=== PATIENT | male | born 1970 | race Caucasian/White ===

== ENCOUNTER → 2018-01-14 17:09 | Outpatient (CLI) | payer OTHER, SELFPAY ==
--- NOTE | 2018-01-14 17:21 | RAD_ITS ---
STUDY: X-RAY - LUMBAR SPINE REASON FOR EXAM: Male, 47 years old. Pain TECHNIQUE: 3 view(s) of the lumbar spine were obtained. COMPARISON: None FINDINGS: Normal lumbar lordosis. There is no substantial scoliosis. There is a normal alignment of the vertebrae. Normal vertebral bodies and endplates. Normal disc space heights. The soft tissue structures are unremarkable. RAD/Lumbar Spine 2 or 3 Views IMPRESSION: Normal x-ray examination of the lumbar spine. Electronically Signed: Prabhu Moreira DO at 22:59 EDT Tel [phone], Service support ,
== END ==
PROVIDERS: Family Provider Family Medicine; PCP Family Medicine; Visit Provider Anesthesiology Pain Medicine
DX: M54.9 Dorsalgia, unspecified (principal)
CPT/HCPCS: 72100

== ENCOUNTER → 2019-10-08 16:07 | Outpatient (CLI) | payer SELFPAY ==
--- NOTE | 2019-10-08 16:42 | CT_ITS ---
STUDY: CT CHEST WITHOUT CONTRAST REASON FOR EXAM: Male, 49 years old. DYSPNEA RADIATION DOSAGE (If Supplied By Facility): CTDIvol = ( 19.25 ) mGy, DLP = ( 649.36 ) mGycm TECHNIQUE: Transaxial imaging was performed without the administration of intravenous contrast material. Multiplanar coronal and sagittal images were reformatted. Individualized dose optimization techniques were used for this CT. COMPARISON: None. FINDINGS: 1 discrete platelike area of scarring or atelectasis in the anterior right lower lobe, anterior left lower lobe and at the base of the lingula. Otherwise negative for major consolidation. Negative for pleural effusion. Normal heart and pericardium. Negative for coronary calcifications. Normal mediastinum. Normal hilar regions. Normal unenhanced pulmonary arteries. Normal aorta arch and descending thoracic aorta. Normal osseous structures. Mild fatty liver. Status post cholecystectomy. CT/Chest without Contrast IMPRESSION: Thin platelike areas of atelectasis or scarring in the bilateral lower lobes and at the base of the lingula without other infiltrates, consolidation or pleural effusion. Negative for emphysematous changes. Negative for pulmonary mass or nodules. Normal cardiac size. Normal mediastinum. Negative for pericardial effusion or coronary calcifications. Mild fatty liver. Status post cholecystectomy. Electronically Signed: Angie Skaggs MD at 22:02 EDT , Service support ,
== END ==
PROVIDERS: PCP Family Medicine; Visit Provider Internal Medicine Pulmonary Disease
DX: Z03.818 Encounter for observation for suspected exposure to other biological agents ruled out (principal); R07.89 Other chest pain; R06.00 Dyspnea, unspecified; R05 Cough
CPT/HCPCS: 71250

== ENCOUNTER → 2019-10-24 12:17 | Outpatient (CLI) | payer OTHER, SELFPAY ==
[2019-10-25 08:12] LABS: SARS-COV-2 TOTAL ABS Nonreactive (Nonreactive)
== END ==
PROVIDERS: PCP Family Medicine; Referring Provider Internal Medicine Pulmonary Disease; Visit Provider Internal Medicine Pulmonary Disease
DX: R07.9 Chest pain, unspecified (principal); R05 Cough
CPT/HCPCS: 86769; G2023

== ENCOUNTER → 2020-03-09 16:53 | Outpatient (CLI) | payer OTHER, SELFPAY ==
[2020-03-09 18:33] LABS: Amphetamine Urine VISTA NEGATIVE (<1000 ng/mL); Barbiturate Urine VISTA NEGATIVE (< 200 ng/mL); Benzodiazepine Urine VISTA NEGATIVE (< 200 ng/mL); Cocaine Urine VISTA NEGATIVE (< 300 ng/mL); Ecstacy Urine VISTA NEGATIVE (< 500 ng/mL); Methadone Urine VISTA NEGATIVE (< 300 ng/mL); PCP Urine VISTA NEGATIVE (< 25 ng/mL); THC Urine VISTA NEGATIVE (< 50 ng/mL); Vista UDS pH Range 6
== END ==
PROVIDERS: PCP Family Medicine; Visit Provider Anesthesiology Pain Medicine
DX: F11.20 Opioid dependence, uncomplicated (principal)
CPT/HCPCS: 80307

== ENCOUNTER → 2020-09-15 14:39 | Outpatient (CLI) | payer OTHER, SELFPAY ==
[2020-09-15 16:15] LABS: Amphetamine Urine VISTA NEGATIVE (<1000 ng/mL); Barbiturate Urine VISTA NEGATIVE (< 200 ng/mL); Benzodiazepine Urine VISTA NEGATIVE (< 200 ng/mL); Cocaine Urine VISTA NEGATIVE (< 300 ng/mL); Ecstacy Urine VISTA NEGATIVE (< 500 ng/mL); Methadone Urine VISTA NEGATIVE (< 300 ng/mL); PCP Urine VISTA NEGATIVE (< 25 ng/mL); THC Urine VISTA NEGATIVE (< 50 ng/mL); Vista UDS pH Range 5
== END ==
PROVIDERS: PCP Family Medicine; Visit Provider Anesthesiology Pain Medicine
DX: F11.20 Opioid dependence, uncomplicated (principal)
CPT/HCPCS: 80307

== ENCOUNTER → 2020-12-08 16:23 | Outpatient (CLI) | payer OTHER, SELFPAY ==
--- NOTE | 2020-12-08 16:44 | RAD_ITS ---
STUDY: X-RAY - PELVIS AND BILATERAL HIPS REASON FOR EXAM: Male, 50 years old. HIP PAIN TECHNIQUE: AP view of the pelvis.? 2 views of the right hip, and 2 views of the left hip were obtained. COMPARISON: None. FINDINGS: There is a non-specific bowel gas pattern. Normal visualized soft tissue structures. Normal bilateral iliac wings, sacroiliac joints and visualized sacrum. Normal bilateral superior and inferior pubic rami. Normal pubic symphysis. Normal bilateral ischial tuberosities. Normal visualized right femoral head. There is osteoarthritic spur formation of the right acetabular rim. There is mild articular joint space narrowing of the right hip. Normal visualized left femoral head. There is osteoarthritic spur formation of the left acetabular rim. There is mild articular joint space narrowing of the left hip. 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 Electronically Signed: Carlton Lazcnao MD at 9:54 EDT Tel , Service support ,
== END ==
PROVIDERS: PCP Family Medicine; Referring Provider Anesthesiology Pain Medicine; Visit Provider Anesthesiology Pain Medicine
DX: M25.551 Pain in right hip (principal); M25.552 Pain in left hip
CPT/HCPCS: 73521

== ENCOUNTER 2021-02-27 12:04 | Inpatient (IN) | payer OTHER, SELFPAY ==
[2021-02-27 12:09] VITALS: BP 125/93; PULSE 89; RESP 17; TEMP 36.7; O2SAT 96; BMI 35.8
--- NOTE | 2021-02-27 12:32 | CT_ITS ---
STUDY: CT ABDOMEN AND PELVIS WITHOUT CONTRAST REASON FOR EXAM: Male, 51 years old. Right lower quadrant pain radiating to the right back RADIATION DOSAGE (If Supplied By Facility): CTDIvol = ( 18.15 ) mGy, DLP = ( 925.01 ) mGycm TECHNIQUE: Transaxial images were obtained from the dome of the diaphragm to the symphysis pubis without oral contrast, and without intravenous contrast. Sagittal and coronal images were reconstructed. Individualized dose optimization techniques were used for this CT. COMPARISON: None. FINDINGS: The visualized lung bases are unremarkable. The visualized portions of the heart are within normal limits. Liver is severely fatty infiltrated.. Gallbladder is removed. There is no biliary dilation.. Normal spleen. Normal pancreas. Normal bilateral adrenal glands. There is a 5 mm stone in the mid to distal right ureter with mild hydronephrosis. There are additional small, 3 mm right and 1 and 13 mm left lower pole calyceal nonobstructing stones. Left lower pole stone is a staghorn with filling of the calyx. There is probably a left lower pole renal cyst, incompletely evaluated. Normal visualized stomach. Normal small intestine. Normal colon. The appendix is visualized and appears normal. Normal abdominal aorta. Normal inferior vena cava. Normal retroperitoneum. Normal urinary bladder. Normal abdominal wall. Normal osseous structures. CT/Abdomen/Pelvis without Cont IMPRESSION: 1. 5 mm mid to distal right ureteral stone with minor hydronephrosis. 2. Left calyceal nonobstructing calculi, early staghorn in the lower pole. Urology referral advised. 3. Possible left renal cyst, refer to confirmatory imaging such as ultrasound. 4. Severe hepatic steatosis. Electronically Signed: Pretty Read MD at 14:21 EDT Tel , Service support ,
--- NOTE | 2021-02-27 12:33 | EDS_ITS ---
HPI HPI - GI History of Present Illness Chief Complaint: Abd Pain Detail of Chief Complaint: Abdominal pain Informant: patient Abdominal Pain/Flank Pain Current Severity: 01/14 Maximum Severity: 01/14 Narrative Narrative: Patient presents with abdominal pain that initially started about a week ago. Patient states that he thought he might be passing a kidney stone so he drank a lot of water and eventually the pain went away. Over the last week he has had some intermittent twinges that have been short-lived of pain to the right lower quadrant. Today around 6 AM he had sudden onset of pain that was severe causing him to have nausea and vomiting and diaphoresis. EMS was called. Patient does not have history of kidney stones otherwise. He denies urinary symptoms. He denies fever. Patient's had prior cholecystectomy. He denies any blood in stool or black tarry stool. He denies hematuria. Prior similar symptoms: No PFSH PFSH Medical History (Updated 02/27/21 @ 14:[address] Kaitlin Osman DO) Neuropathy Home Medications gabapentin 900 mg PO TID 02/27/21 [History Last Taken Unknown] nortriptyline 10 mg PO QHS 02/27/21 [History Last Taken Unknown] oxycodone myristate [Xtampza ER] 13.5 mg PO BID 02/27/21 [History Last Taken Unknown] Allergy/AdvReac Type Severity Reaction Status Date / Time Penicillins Allergy allergy to Verified 02/27/21 12:05 mold, old not to take Surgical History (Updated 02/27/21 @ 12:10 by Jess Garvey) History of back surgery History of cholecystectomy History of shoulder surgery Social History Smoking Status: Never smoker ROS ROS ED Constitutional Constitutional ED: Reports systems reviewed and no addt'l complaints, except as documented; Denies body ache(s), change in weight or chills Eyes Eyes: Denies acute decrease in peripheral vision, change in vision, double vision or loss of vision ENT ENT ED: Reports none; Denies ear pain, lip swelling, loss taste/smell, neck pain, otalgia or sore throat Cardiovascular Cardiovascular: Reports none; Denies abdominal pain, chest pain with activity, leg edema, lightheadedness, palpitations, rapid heart rate or syncope Respiratory/Chest Respiratory/Chest: Reports none; Denies change in mental status, dry cough, dyspnea, hemoptysis, shortness of breath at rest or shortness of breath with exertion Gastrointestinal Gastrointestinal: Reports none, abdominal pain, nausea and vomiting; Denies change in stool character, diarrhea, hematemesis, hematochezia, melena or rectal bleeding Genitourinary Genitourinary ED: Reports none; Denies abdominal discomfort, anuria, dysuria, genital pain or polyuria Musculoskeletal Musculoskeletal: Reports none; Denies arthralgias, back pain, difficulty walking, extremity pain, muscle weakness or myalgias Integumentary Reports none; Denies abscess or rash Neurologic Neurologic: Reports none; Denies abnormal gait, confusion, focal weakness, frequent falls, headache(s), loss of vision, numbness, paresthesias, radicular pain, vertigo or weakness Psychiatric Psychiatric: Reports systems reviewed and no addt'l complaints, except as documented and none; Denies behavioral changes, confusion, difficulty concentrating, hallucinations, suicidal ideation, tactile hallucinations or visual hallucinations Endocrine Endocrinology: Denies none, cold intolerance, excessive sweating, fatigue or heat intolerance Hematologic/Lymphatic Hematologic/Lymphatic: Reports none; Denies anemia, easy bleeding or easy bruising Allergic/Immunologic Allergic/Immunologic ED: Denies as per HPI, none, lip swelling, mouth swelling, throat swelling, tongue swelling or hives EXAM Physical Exam Const Vital Signs: 02/27/21 12:09 Temperature 98.1 F Temperature Source Oral Pulse Rate 89 Respiratory Rate 17 Blood Pressure 125/93 H Blood Pressure Mean 103 Pulse Ox 96 Oxygen Delivery Method Room Air Positive well nourished and well developed General Appearance ED: well developed and NAD HEENT Reports TM's clear and moist mucous membranes normocephalic and atraumatic; Negative for trauma or tenderness Tympanic Membrane ED: Yes TM's clear Eyes PERRL and EOMs intact bilaterally General Eye ED: Negative for pale conjunctiva or scleral icterus Neck no lymphadenopathy, supple and no JVD General: Negative for tenderness Chest Wall inspection of chest normal and palpation of chest normal Chest: Negative for tenderness Resp normal respiratory effort and clear to auscultation bilaterally Effort and Inspection: Negative for respiratory distress or pain with movement Auscultation: Negative for rhonchi, wheezes or diminished lung sounds Cardio regular rate, regular rhythm, S1 normal heart sound, S2 normal heart sound and no murmurs Peripheral Pulses: pulses 2+ throughout GI normal to inspection, nondistended, normoactive bowel sounds, soft to palpation, non-distended and no masses GI Narrative: Patient with tenderness over right lower quadrant with some guarding. There is no rebound, rigidity, or frail signs. Patient also with some right-sided CVA tenderness on exam. Palpation: soft and tender Back/Spine no thoracic nor lumbar tenderness General Back: CVA tenderness Extremity normal to inspection General Extremety ED: Negative for edema General Extremity: Negative for edema Neuro oriented x3, CN's II-XII intact bilaterally, no sensory deficits noted and gait normal Sensorium / Orientation: awake, alert, oriented to person, oriented to place and oriented to time Motor Exam: strength 5/5 throughout and strength abnormal Psych mental status grossly normal Skin no rashes or lesions noted and no wounds MDM MDM MDM Narrative Medical decision making narrative: IV line established on arrival. Patient was medicated with Dilaudid and Zofran and Toradol. Patient had initially good pain relief but then the pain started come back and now rates it an 8 out of 10 again. Patient was noted to have a 5 mm right mid ureter stone with mild hydro- . Case will be discussed with hospitalist evaluate patient for admission for intractable pain. I am told urology is not available today. I do not feel patient needs a emergent urological intervention. Lab Data Attestation: I reviewed the patient's lab results. Labs: Laboratory Results - last 24 hr 02/27/21 02/27/21 02/27/21 11:37 11:37 13:07 WBC 6.6 RBC 4.60 Hgb 14.1 Hct 44.1 MCV 95.9 H MCH 30.7 MCHC 32.0 RDW Std Deviation 41.2 RDW Coeff of Luli 11.8 Plt Count 317 MPV 9.2 Immature Gran % (Auto) 0.300 Neut % (Auto) 65.4 Lymph % (Auto) 15.6 L [place] % (Auto) 11.4 H Eos % (Auto) 6.8 H Baso % (Auto) 0.5 Absolute Neuts (auto) 4.3 Absolute Lymphs (auto) 1.03 Nucleated RBC % 0 Sodium 137 Potassium 3.5 Chloride 101 Carbon Dioxide 27.0 Anion Gap 9 BUN 14 Creatinine 1.11 Estim Creat Clear Calc 75.32 Est GFR (MDRD) Af Amer 90 Est GFR (MDRD) Non-Af 74 BUN/Creatinine Ratio 12.6 Glucose 98 Lactic Acid 1.4 Calcium 8.8 Total Bilirubin 0.40 AST 27 ALT 49 Alkaline Phosphatase 78 Total Protein 7.2 Albumin 3.8 Globulin 3.4 Albumin/Globulin Ratio 1.1 Lipase 213 Urine Color Urine Clarity Urine pH Ur Specific [place] Urine Protein Urine Glucose (UA) Urine Ketones Urine Occult Blood Urine Nitrite Urine Bilirubin Urine Urobilinogen Ur Leukocyte Esterase Urine RBC Urine WBC Ur Squamous Epith Cells Urine Bacteria Urine Mucus 02/27/21 13:21 WBC RBC Hgb Hct MCV MCH MCHC RDW Std Deviation RDW Coeff of Luli Plt Count MPV Immature Gran % (Auto) Neut % (Auto) Lymph % (Auto) [place] % (Auto) Eos % (Auto) Baso % (Auto) Absolute Neuts (auto) Absolute Lymphs (auto) Nucleated RBC % Sodium Potassium Chloride Carbon Dioxide Anion Gap BUN Creatinine Estim Creat Clear Calc Est GFR (MDRD) Af Amer Est GFR (MDRD) Non-Af BUN/Creatinine Ratio Glucose Lactic Acid Calcium Total Bilirubin AST ALT Alkaline Phosphatase Total Protein Albumin Globulin Albumin/Globulin Ratio Lipase Urine Color Yellow Urine Clarity Clear Urine pH 6.0 Ur Specific [place] 1.010 Urine Protein Negative Urine Glucose (UA) Normal Urine Ketones Negative Urine Occult Blood 150 H Urine Nitrite Negative Urine Bilirubin Negative Urine Urobilinogen Normal Ur Leukocyte Esterase Negative Urine RBC 0-5 SEEN Urine WBC 0-5 SEEN Ur Squamous Epith Cells 0 SEEN Urine Bacteria 0 SEEN Urine Mucus 0 SEEN Radiography Diagnostic Testing: Clinical Impression(s) from Imaging Studies Abdomen/Pelvis CT 02/27/21 12:32 IMPRESSION: 1. 5 mm mid to distal right ureteral stone with minor hydronephrosis. 2. Left calyceal nonobstructing calculi, early staghorn in the lower pole. Urology referral advised. 3. Possible left renal cyst, refer to confirmatory imaging such as ultrasound. 4. Severe hepatic steatosis. Electronically Signed: Pretty Read MD at 14:21 EDT Tel , Service support , Discharge Plan Triage Chief Complaint: Abd Pain ED Provider: Kaitlin Osman Dx/Rx/DC Orders Clinical Impression: Urolithiasis, Intractable pain Prescriptions: No Action gabapentin 600 mg tablet 900 mg PO TID RF: 0 nortriptyline 10 mg capsule 10 mg PO QHS RF: 0 Xtampza ER 13.5 mg cap,sprinkl,ER12hr(DONT CRUSH) 13.5 mg PO BID RF: 0 Primary Care Provider: Bijal Kendall Referrals: Bijal Kendall MD [Primary Care Provider] - Disposition Disposition: Acute Care Hospital [facility]
[2021-02-27] MEDS: Ketorolac 15 MG/ML Vial IV (12:39)
[2021-02-27] MEDS: Ondansetron 4 MG/2 ML Vial IV ×2 (12:39→15:14)
[2021-02-27] MEDS: 0.9% Normal Saline 1,000 ML 125 ML IV ×2 (12:39→22:06)
[2021-02-27] MEDS: HYDROmorphone 1 MG/ML Syringe IV ×2 (12:39→14:48)
[2021-02-27 13:13] LABS: Absolute Lymphocyte Count 1.03 X10^3/uL (0.83-4.51); Absolute Neutrophil Count 4.3 X10^3/uL (2.0-7.7); Basophil# 0.03 X10^3/uL; Basophil% 0.5 % (0-1); Eosinophil# 0.45 X10^3/uL; Eosinophils% 6.8 % (0-5); Hematocrit 44.1 % (40-54); Hemoglobin 14.1 g/dL (13.0-16.5); Lymphocyte # 1.03 X10^3/ul (0.83-4.51); Lymphocyte % 15.6 % (19-41); Mean Corpuscular Hgb 30.7 pg (27.0-32.0); Mean Corpuscular Volume 95.9 fL (80-94); Mean Platelet Vol. 9.2 fl (6.2-12.0); Monocyte# 0.75 X10^3/uL; Monocyte% 11.4 % (0-10); NRBC Flagged by Analyzer 0 % (0-5); Neutrophil # 4.31 X10^3/uL (2.7-7.7); Neutrophil % 65.4 % (47-70); Platelet Count 317 K/mm3 (150-450); RBC Distribution Width CV 11.8 % (11.6-14.6); RBC Distribution Width SD 41.2 fl (35.1-43.9); White Blood Count 6.6 K/mm3 (4.4-11.0)
[2021-02-27 13:25] LABS: ALB/GLOB Ratio 1.1 RATIO (0.9-2.4); AST(SGOT) 27 U/L (15-37); Alanine Aminotransfer ALT/SGPT 49 U/L (16-61); Albumin, Serum 3.8 g/dL (3.2-5.0); Alkaline Phosphatase 78 U/L (45-117); Anion Gap 9 (5-15); BUN 14 mg/dL (7-18); BUN/Creat Ratio 12.6 RATIO (10-20); Calcium,Total 8.8 mg/dL (8.5-10.1); Chloride 101 mmol/L (98-107); Creatinine, Serum 1.11 mg/dL (0.70-1.30); EST Glomerular Filtration Rate 74 mL/min (>60); Est Glom Filt Rate - Afr Amer 90 mL/min (>60); Estimated Creatinine Clearance 75.32 ml/min; Globulin 3.4 g/dL (2.2-4.2); Glucose 98 mg/dL (74-106); Lipase 213 U/L (73-393); Potassium 3.5 mmol/L (3.5-5.1); Protein, Total 7.2 g/dL (6.4-8.2); Sodium Level 137 mmol/L (136-145)
[2021-02-27 13:34] LABS: Lactic Acid 1.4 mmol/L (0.4-1.9)
[2021-02-27 13:36] LABS: Bacteria 0 SEEN /hpf (None Seen); Mucous, Urine 0 SEEN /hpf (<or=2+); Squamous Epithelial Cells - UA 0 SEEN /hpf (0-5)
[2021-02-27 13:39] LABS: Color, Urine Yellow (Yellow); Glucose, Dipstick Normal (Normal); Ketone-Dipstick Negative (Negative); Leukocyte Esterase-Dipstick Negative /ul (Negative); Nitrite-Dipstick Negative (Negative); Occult Blood-Urine 150 /ul (Negative); Protein-Dipstick Negative (Negative); Urine Bilirubin Dipstick Negative (Negative); Urine Clarity Clear (Clear); Urine Urobilinogen Normal (Normal)
[2021-02-27 13:56] LABS: Red Blood Cells-Urine 0-5 SEEN /hpf (0-5); White Blood Cells 0-5 SEEN /hpf (0-5)
--- NOTE | 2021-02-27 14:44 | PCM.HP.STD ---
HPI - General General Date of Admission: 02/27/21 HPI Narrative ANANTH THOMAS, is a 51 M who presents to the hospital with intermittent abdominal pain for the last week. He came in this morning because the pain recurred severely. In the ER he was found to have normal vital signs as well as normal labs however CT scan of his abdomen demonstrated a right distal ureteral stone as well as a possible early staghorn stone in the left kidney.Denies any fevers or chills but states that he did have some nausea and vomiting due to the pain. [facility] Medical History (Updated 02/27/21 @ 15:51 by Isabel Giron) Asthma Chronic pain CPAP (continuous positive airway pressure) dependence Irregular heart beat Migraines Neuropathy Non-smoker Osteoporosis Sleep apnea Home Medications gabapentin 900 mg PO TID 02/27/21 [History Last Taken Unknown] nortriptyline 10 mg PO QHS 02/27/21 [History Last Taken Unknown] oxycodone myristate [Xtampza ER] 13.5 mg PO BID 02/27/21 [History Last Taken Unknown] Allergy/AdvReac Type Severity Reaction Status Date / Time Penicillins Allergy allergy to Verified 02/27/21 12:05 mold, old not to take Family History (Updated 02/27/21 @ 17:[address] Joe Leal MD) Other CVA (cerebral vascular accident) Surgical History (Updated 02/27/21 @ 12:10 by Jess Garvey) History of back surgery History of cholecystectomy History of shoulder surgery Social History Smoking Status: Never smoker ROS Constitutional Constitutional: Denies chills, fatigue, fever(s) or malaise Eyes Eyes: Denies blurry vision ENT HEENT: Denies headache(s) or nasal discharge Cardiovascular Cardiovascular: Denies chest pain, dyspnea on exertion or syncope Respiratory/Chest Respiratory/Chest: Denies cough, shortness of breath at rest or shortness of breath with exertion Gastrointestinal Gastrointestinal: Denies constipation, diarrhea, nausea or vomiting Genitourinary Genitourinary: Reports flank pain; Denies dysuria Neurologic Neurologic: Denies focal weakness, numbness or tremor(s) Psychiatric Psychiatric: Denies anxiety or depression Vital Signs Vital Signs Vital Signs: 02/27/21 12:09 Temperature 98.1 F Temperature Source Oral Pulse Rate 89 Respiratory Rate 17 Blood Pressure 125/93 H Blood Pressure Mean 103 Pulse Ox 96 Oxygen Delivery Method Room Air Weight Weight: 235 lb 10.786 oz Body Mass Index (BMI) 35.8 Physical Exam Const alert, oriented x3 and no apparent distress General Appearance: cooperative HEENT normocephalic and moist oral mucous membranes Eyes PERRL, EOMs intact bilaterally and conjunctivae normal Neck supple and no JVD Resp normal respiratory effort, no retractions, no use of accessory muscles and clear to auscultation bilaterally Auscultation: Negative for crackles, rales, rhonchi or wheezes Cardio regular rate, regular rhythm, S1 normal heart sound, S2 normal heart sound and no murmurs GI soft to palpation, non-tender and non-distended; Negative for hepatosplenomegaly Bladder / Kidney Exam: CVA tenderness right Extremity no clubbing, cyanosis or edema Skin no rashes or lesions noted Neuro no focal motor deficits and no sensory deficits noted Psych affect normal Appearance: appropriate Results Lab / Micro Data Result Diagrams: 02/27/21 11:37 02/27/21 11:37 Labs: Laboratory Results - last 24 hr 02/27/21 11:37: WBC 6.6, RBC 4.60, Hgb 14.1, Hct 44.1, MCV 95.9 H, MCH 30.7, MCHC 32.0, RDW Std Deviation 41.2, RDW Coeff of Luli 11.8, Plt Count 317, MPV 9.2, Immature Gran % (Auto) 0.300, Neut % (Auto) 65.4, Lymph % (Auto) 15.6 L, [place] % (Auto) 11.4 H, Eos % (Auto) 6.8 H, Baso % (Auto) 0.5, Absolute Neuts (auto) 4.3, Absolute Lymphs (auto) 1.03, Nucleated RBC % 0 02/27/21 11:37: Sodium 137, Potassium 3.5, Chloride 101, Carbon Dioxide 27.0, Anion Gap 9, BUN 14, Creatinine 1.11, Estim Creat Clear Calc 75.32, Est GFR (MDRD) Af Amer 90, Est GFR (MDRD) Non-Af 74, BUN/Creatinine Ratio 12.6, Glucose 98, Calcium 8.8, Total Bilirubin 0.40, AST 27, ALT 49, Alkaline Phosphatase 78, Total Protein 7.2, Albumin 3.8, Globulin 3.4, Albumin/Globulin Ratio 1.1, Lipase 213 02/27/21 13:07: Lactic Acid 1.4 02/27/21 13:21: Urine Color Yellow, Urine Clarity Clear, Urine pH 6.0, Ur Specific [place] 1.010, Urine Protein Negative, Urine Glucose (UA) Normal, Urine Ketones Negative, Urine Occult Blood 150 H, Urine Nitrite Negative, Urine Bilirubin Negative, Urine Urobilinogen Normal, Ur Leukocyte Esterase Negative, Urine RBC 0-5 SEEN, Urine WBC 0-5 SEEN, Ur Squamous Epith Cells 0 SEEN, Urine Bacteria 0 SEEN, Urine Mucus 0 SEEN Radiology Impression Abdomen/Pelvis CT 02/27/21 12:32 IMPRESSION: 1. 5 mm mid to distal right ureteral stone with minor hydronephrosis. 2. Left calyceal nonobstructing calculi, early staghorn in the lower pole. Urology referral advised. 3. Possible left renal cyst, refer to confirmatory imaging such as ultrasound. 4. Severe hepatic steatosis. Electronically Signed: Pretty Read MD at 14:21 EDT Tel , Service support , Assessment & Plan Assessment/Plan (1) Urolithiasis: PLAN: 1. 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
[2021-02-27 14:51] VITALS: BP 160/80; PULSE 84; RESP 18; TEMP 36.6; O2SAT 96
[2021-02-27 15:27] VITALS: BMI 35.3
[2021-02-27 15:34] VITALS: BP 119/82; PULSE 88; RESP 18; TEMP 36.9; O2SAT 97
[2021-02-27] MEDS: Gabapentin 300 MG Capsule 900 MG PO ×2 (16:11→22:07)
[2021-02-27] MEDS: Tamsulosin HCl 0.4 MG Capsule PO (18:26)
[2021-02-27] MEDS: 0.9% Saline Lock 10 ML Syringe IV (18:31)
[2021-02-27] MEDS: Ketorolac 30 MG/ML Syringe IV (18:32)
[2021-02-27 21:54] VITALS: BP 112/72; PULSE 69; RESP 18; TEMP 36.8; O2SAT 100
[2021-02-27] MEDS: oxyCODONE CR 15 MG Tablet PO (22:07)
[2021-02-27] MEDS: Nortriptyline 10 MG Capsule PO (22:08)
[2021-02-28] MEDS: 0.9% Saline Lock 10 ML Syringe IV (05:34)
[2021-02-28] MEDS: Ketorolac 30 MG/ML Syringe IV ×3 (05:34→22:51)
[2021-02-28] MEDS: 0.9% Normal Saline 1,000 ML 125 ML IV ×3 (05:38→20:55)
[2021-02-28] MEDS: Gabapentin 300 MG Capsule 900 MG PO ×3 (05:39→20:57)
[2021-02-28 05:43] VITALS: BP 113/73; PULSE 63; RESP 18; TEMP 36.3; O2SAT 100
[2021-02-28 06:13] LABS: Absolute Lymphocyte Count 1.82 X10^3/uL (0.83-4.51); Absolute Neutrophil Count 1.6 X10^3/uL (2.0-7.7); Basophil# 0.02 X10^3/uL; Basophil% 0.4 % (0-1); Eosinophil# 0.58 X10^3/uL; Eosinophils% 12.9 % (0-5); Hematocrit 42.2 % (40-54); Hemoglobin 13.1 g/dL (13.0-16.5); Lymphocyte # 1.82 X10^3/ul (0.83-4.51); Lymphocyte % 40.4 % (19-41); Mean Corpuscular Hgb 31.1 pg (27.0-32.0); Mean Corpuscular Volume 100.2 fL (80-94); Mean Platelet Vol. 9.8 fl (6.2-12.0); Monocyte% 11.1 % (0-10); NRBC Flagged by Analyzer 0 % (0-5); Neutrophil # 1.56 X10^3/uL (2.7-7.7); Neutrophil % 34.8 % (47-70); Platelet Count 186 K/mm3 (150-450); RBC Distribution Width CV 11.9 % (11.6-14.6); RBC Distribution Width SD 43.5 fl (35.1-43.9); Red Blood Count 4.21 M/mm3 (4.6-6.2); White Blood Count 4.5 K/mm3 (4.4-11.0)
[2021-02-28 06:32] LABS: Anion Gap 7 (5-15); BUN 10 mg/dL (7-18); BUN/Creat Ratio 11.1 RATIO (10-20); Calcium,Total 8.2 mg/dL (8.5-10.1); Chloride 110 mmol/L (98-107); EST Glomerular Filtration Rate 94 mL/min (>60); Est Glom Filt Rate - Afr Amer 114 mL/min (>60); Estimated Creatinine Clearance 92.89 ml/min; Glucose 96 mg/dL (74-106); Potassium 4.1 mmol/L (3.5-5.1); Sodium Level 135 mmol/L (136-145)
[2021-02-28 07:52] VITALS: BP 99/55; PULSE 69; RESP 16; TEMP 36.5; O2SAT 96
--- NOTE | 2021-02-28 07:53 | CON.PCM.UR_ITS ---
Assessment & Plan Assessment/Plan (1) Urolithiasis: PLAN: strain all urine, flomax, check kub in am , possible intervention if can't pass stone. (2) Intractable pain: HPI Consult Data Date of Consult: 02/28/21 HPI Narrative HPI Narrative: ANANTH THOMAS, is a 51 M who presents with stone in right ureter, came in with intracable pain, pain started last week. currenlty comfortable. FORMERLY [facility] Medical History (Updated 02/27/21 @ 15:51 by Isabel Giron) Asthma Chronic pain CPAP (continuous positive airway pressure) dependence Irregular heart beat Migraines Neuropathy Non-smoker Osteoporosis Sleep apnea Home Medications gabapentin 900 mg PO TID 02/27/21 [History Last Taken Unknown] nortriptyline 10 mg PO QHS 02/27/21 [History Last Taken Unknown] oxycodone myristate [Xtampza ER] 13.5 mg PO BID 02/27/21 [History Last Taken Unknown] Allergy/AdvReac Type Severity Reaction Status Date / Time Penicillins Allergy allergy to Verified 02/27/21 12:05 mold, old not to take Family History (Updated 02/27/21 @ 17:[address] Joe Leal MD) Other CVA (cerebral vascular accident) Surgical History (Updated 02/27/21 @ 12:10 by Jess Garvey) History of back surgery History of cholecystectomy History of shoulder surgery Social History Smoking Status: Never smoker ROS Constitutional Constitutional: Denies chills, fever(s) or malaise Eyes Eyes: Denies blurry vision or change in vision ENT HEENT: Reports none Cardiovascular Cardiovascular: Denies chest pain or palpitations Respiratory/Chest Respiratory/Chest: Denies cough or shortness of breath with exertion Gastrointestinal Gastrointestinal: Denies abdominal pain, constipation or diarrhea Musculoskeletal Musculoskeletal: Denies back pain, joint stiffness or joint swelling Integumentary Integumentary: Denies dry skin, jaundice, lesions or rash Neurologic Neurologic: Denies confusion, syncope or weakness Psychiatric Psychiatric: Reports none; Denies anxiety or depression Endocrine Endocrinology: Denies excessive sweating, fatigue or flushing Hematologic/Lymphatic Hematologic/Lymphatic: Denies anemia, easy bleeding or easy bruising Physical Exam Const alert and oriented x3 General Appearance: cooperative HEENT normocephalic, head/scalp atraumatic, EAC's normal and TM's normal bilaterally Eyes PERRL and EOMs intact bilaterally Pupil: sluggish Neck no lymphadenopathy, supple and no JVD General: trachea midline Lymph Lymphatic: no lymphadenopathy noted, lymphedema and lymphadenopathy Resp normal respiratory effort, normal air movement and clear to auscultation bilaterally Cardio regular rate, regular rhythm and peripheral pulses 2+ throughout GI soft to palpation, non-tender and non-distended Extremity normal capillary refill and no clubbing, cyanosis or edema General Extremity: no tenderness to palpation of joints or extremities Skin no rashes or lesions noted General Skin Exam: turgor normal Lesions: no lesions Rashes: no rashes Neuro CN's II-XII intact bilaterally Speech: speech normal Motor Exam: strength 5/5 throughout; Negative for general weakness Psych thought process normal, cooperative and affect normal Appearance: appropriate Lab / Micro Data Result Diagrams: 02/28/21 05:52 02/28/21 05:52 Labs: Laboratory Results - last 24 hr 02/27/21 11:37: WBC 6.6, RBC 4.60, Hgb 14.1, Hct 44.1, MCV 95.9 H, MCH 30.7, MCHC 32.0, RDW Std Deviation 41.2, RDW Coeff of Luli 11.8, Plt Count 317, MPV 9.2, Immature Gran % (Auto) 0.300, Neut % (Auto) 65.4, Lymph % (Auto) 15.6 L, [place] % (Auto) 11.4 H, Eos % (Auto) 6.8 H, Baso % (Auto) 0.5, Absolute Neuts (auto) 4.3, Absolute Lymphs (auto) 1.03, Nucleated RBC % 0 02/27/21 11:37: Sodium 137, Potassium 3.5, Chloride 101, Carbon Dioxide 27.0, Anion Gap 9, BUN 14, Creatinine 1.11, Estim Creat Clear Calc 75.32, Est GFR (MDRD) Af Amer 90, Est GFR (MDRD) Non-Af 74, BUN/Creatinine Ratio 12.6, Glucose 98, Calcium 8.8, Total Bilirubin 0.40, AST 27, ALT 49, Alkaline Phosphatase 78, Total Protein 7.2, Albumin 3.8, Globulin 3.4, Albumin/Globulin Ratio 1.1, Lipase 213 02/27/21 13:07: Lactic Acid 1.4 02/27/21 13:21: Urine Color Yellow, Urine Clarity Clear, Urine pH 6.0, Ur Specific [place] 1.010, Urine Protein Negative, Urine Glucose (UA) Normal, Urine Ketones Negative, Urine Occult Blood 150 H, Urine Nitrite Negative, Urine Bilirubin Negative, Urine Urobilinogen Normal, Ur Leukocyte Esterase Negative, Urine RBC 0-5 SEEN, Urine WBC 0-5 SEEN, Ur Squamous Epith Cells 0 SEEN, Urine Bacteria 0 SEEN, Urine Mucus 0 SEEN 02/28/21 05:52: WBC 4.5, RBC 4.21 L, Hgb 13.1, Hct 42.2, MCV 100.2 H, MCH 31.1, MCHC 31.0 L, RDW Std Deviation 43.5, RDW Coeff of Luli 11.9, Plt Count 186, MPV 9.8, Immature Gran % (Auto) 0.400, Neut % (Auto) 34.8 L, Lymph % (Auto) 40.4, [place] % (Auto) 11.1 H, Eos % (Auto) 12.9 H, Baso % (Auto) 0.4, Absolute Neuts (auto) 1.6 L, Absolute Lymphs (auto) 1.82, Nucleated RBC % 0 02/28/21 05:52: Sodium 135 L, Potassium 4.1, Chloride 110 H, Carbon Dioxide 18.0 L, Anion Gap 7, BUN 10, Creatinine 0.90, Estim Creat Clear Calc 92.89, Est GFR (MDRD) Af Amer 114, Est GFR (MDRD) Non-Af 94, BUN/Creatinine Ratio 11.1, Glucose 96, Calcium 8.2 L Radiology Impression Abdomen/Pelvis CT 02/27/21 12:32 IMPRESSION: 1. 5 mm mid to distal right ureteral stone with minor hydronephrosis. 2. Left calyceal nonobstructing calculi, early staghorn in the lower pole. Urology referral advised. 3. Possible left renal cyst, refer to confirmatory imaging such as ultrasound. 4. Severe hepatic steatosis. Electronically Signed: Pretty Read MD at 14:21 EDT Tel , Service support ,
--- NOTE | 2021-02-28 08:28 | PN.HOSP_ITS ---
Subjective Subjective Pain is controlled with Toradol and his home narcotics, continue with Flomax. No issues overnight Objective Data Objective Data Vital Signs: Vital Signs Temp Pulse Resp BP Pulse Ox 97.7 F L 69 16 99/55 L 96 02/28/21 07:52 02/28/21 07:52 02/28/21 07:52 02/28/21 07:52 02/28/21 07:52 Oxygen Delivery Method CPAP Weight: 232 lb 9 oz Body Mass Index (BMI) 35.3 Intake & Output: Intake and Output for Last 24 Hours 02/27/21 02/28/21 03/01/21 03:59 03:59 03:59 Intake Total 1000 / 1000 941.67 / 941.67 Output Total 750 / 750 900 / 900 Balance 250 / 250 41.67 / 41.67 Lab / Micro Data Result Diagrams: 02/28/21 05:52 02/28/21 05:52 Labs: Laboratory Results - last 24 hr 02/27/21 11:37: WBC 6.6, RBC 4.60, Hgb 14.1, Hct 44.1, MCV 95.9 H, MCH 30.7, MCHC 32.0, RDW Std Deviation 41.2, RDW Coeff of Luli 11.8, Plt Count 317, MPV 9.2, Immature Gran % (Auto) 0.300, Neut % (Auto) 65.4, Lymph % (Auto) 15.6 L, [place] % (Auto) 11.4 H, Eos % (Auto) 6.8 H, Baso % (Auto) 0.5, Absolute Neuts (auto) 4.3, Absolute Lymphs (auto) 1.03, Nucleated RBC % 0 02/27/21 11:37: Sodium 137, Potassium 3.5, Chloride 101, Carbon Dioxide 27.0, Anion Gap 9, BUN 14, Creatinine 1.11, Estim Creat Clear Calc 75.32, Est GFR (MDRD) Af Amer 90, Est GFR (MDRD) Non-Af 74, BUN/Creatinine Ratio 12.6, Glucose 98, Calcium 8.8, Total Bilirubin 0.40, AST 27, ALT 49, Alkaline Phosphatase 78, Total Protein 7.2, Albumin 3.8, Globulin 3.4, Albumin/Globulin Ratio 1.1, Lipase 213 02/27/21 13:07: Lactic Acid 1.4 02/27/21 13:21: Urine Color Yellow, Urine Clarity Clear, Urine pH 6.0, Ur Specific [place] 1.010, Urine Protein Negative, Urine Glucose (UA) Normal, Urine Ketones Negative, Urine Occult Blood 150 H, Urine Nitrite Negative, Urine Bilirubin Negative, Urine Urobilinogen Normal, Ur Leukocyte Esterase Negative, Urine RBC 0-5 SEEN, Urine WBC 0-5 SEEN, Ur Squamous Epith Cells 0 SEEN, Urine Bacteria 0 SEEN, Urine Mucus 0 SEEN 02/28/21 05:52: WBC 4.5, RBC 4.21 L, Hgb 13.1, Hct 42.2, MCV 100.2 H, MCH 31.1, MCHC 31.0 L, RDW Std Deviation 43.5, RDW Coeff of Luli 11.9, Plt Count 186, MPV 9.8, Immature Gran % (Auto) 0.400, Neut % (Auto) 34.8 L, Lymph % (Auto) 40.4, [place] % (Auto) 11.1 H, Eos % (Auto) 12.9 H, Baso % (Auto) 0.4, Absolute Neuts (auto) 1.6 L, Absolute Lymphs (auto) 1.82, Nucleated RBC % 0 02/28/21 05:52: Sodium 135 L, Potassium 4.1, Chloride 110 H, Carbon Dioxide 18.0 L, Anion Gap 7, BUN 10, Creatinine 0.90, Estim Creat Clear Calc 92.89, Est GFR (MDRD) Af Amer 114, Est GFR (MDRD) Non-Af 94, BUN/Creatinine Ratio 11.1, Glucose 96, Calcium 8.2 L Radiography Diagnostic Testing: Radiology Impression Abdomen/Pelvis CT 02/27/21 12:32 IMPRESSION: 1. 5 mm mid to distal right ureteral stone with minor hydronephrosis. 2. Left calyceal nonobstructing calculi, early staghorn in the lower pole. Urology referral advised. 3. Possible left renal cyst, refer to confirmatory imaging such as ultrasound. 4. Severe hepatic steatosis. Electronically Signed: Pretty Read MD at 14:21 EDT Tel , Service support , Physical Exam Const alert, oriented x3 and no apparent distress General Appearance: cooperative HEENT normocephalic and moist oral mucous membranes Eyes PERRL, EOMs intact bilaterally and conjunctivae normal Neck supple and no JVD Resp normal respiratory effort, no retractions, no use of accessory muscles and clear to auscultation bilaterally Auscultation: Negative for crackles, rales, rhonchi or wheezes Cardio regular rate, regular rhythm, S1 normal heart sound, S2 normal heart sound and no murmurs GI soft to palpation, non-tender and non-distended; Negative for hepatosplenomegaly Bladder / Kidney Exam: CVA tenderness right Extremity no clubbing, cyanosis or edema Skin no rashes or lesions noted Neuro no focal motor deficits and no sensory deficits noted Psych affect normal Appearance: appropriate Assessment & Plan Assessment/Plan (1) Urolithiasis: PLAN: 1. 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
[2021-02-28 09:23] VITALS: BP 111/71
[2021-02-28] MEDS: oxyCODONE CR 15 MG Tablet PO ×2 (09:26→22:49)
--- NOTE | 2021-02-28 11:00 | CASEMGMT ---
RN CM Face to Face with patient for initial transition planning/care coordination assessment. RN CM introduced self and role at [facility]. Patient lying in bed, alert and oriented. Patient willing to participate in assessment and is able to answer all questions appropriately. Care providers, pharmacy, and demographics verified. Patient wishes to discharge home, denies need for home health at this time. Patient states he has no further needs or concerns at this time. CM to follow for discharge planning needs that may arise. PCP: Faiza Specialists: Slade, pain; Steve, neurologist [facility] Preferred Pharmacy: [facility] retail at discharge. Insurance: [employer] Prescription Benefit: yes Living Will/HPOA: none LNOK: Living Arrangements: Patient lives with in 2 story home with bed and bath on first floor. Patient states he is independent and able to ambulate stairs. Transportation: self/ DME/HHC: Patient states he has shower chair, cane, walker, wheelchair, and cpap at home. No previous HHC or SNF. Disposition Plan: Patient to discharge home with family support and follow-up plans in place. Edith HAZEL, RN, CM
[2021-02-28 14:00] VITALS: BP 111/70; PULSE 69; RESP 16; TEMP 36.5; O2SAT 97
--- NOTE | 2021-02-28 15:31 | CHAPLAIN ---
Type of Pastoral Visit _x__ Initial Visit ___ Follow-up Visit ___ On-call Visit ___ General Patient Visit ___ Spiritual Assessment ___ Family Conference ___ Bereavement ___ Rapid Response ___ Code Blue ___ Other (describe below) Pastoral Care Referral From _x__ Patient ___ Family ___ Nurse ___ Physician ___ Chrome Plater Helper ___ Equipment Installation Professional ___ Other (describe below) Sacrament/Intervention _x__ Active listening ___ Anointing ___ Church ___ Bereavement ___ Communion _x__ Rita exploration ___ _x__ Life review _x__ Prayer ___ Reconciliation ___ Sacrament of Sick _x__ Supportive presence ___ Wedding ___ Other (describe below) Pastoral Comments patient is a man of rita and welcomes the spiritual care presence and support
[2021-02-28] MEDS: Tamsulosin HCl 0.4 MG Capsule PO (17:41)
[2021-02-28 20:15] VITALS: BP 123/65; PULSE 76; RESP 18; TEMP 37.1; O2SAT 96
[2021-02-28] MEDS: Nortriptyline 10 MG Capsule PO (22:50)
[2021-03-01 02:54] VITALS: BP 113/65; PULSE 72; RESP 16; TEMP 36.6; O2SAT 93
[2021-03-01] MEDS: 0.9% Normal Saline 1,000 ML 125 ML IV ×3 (04:29→20:23)
[2021-03-01] MEDS: 0.9% Saline Lock 10 ML Syringe IV ×3 (05:50→22:39)
[2021-03-01] MEDS: Ketorolac 30 MG/ML Syringe IV ×3 (05:51→22:40)
[2021-03-01] MEDS: Gabapentin 300 MG Capsule 900 MG PO ×3 (05:52→22:39)
--- NOTE | 2021-03-01 06:00 | RAD_ITS ---
STUDY: X-RAY - ABDOMEN/PELVIS REASON FOR EXAM: Male, 51 years old. Stone TECHNIQUE: Single AP view of the abdomen / pelvis. COMPARISON: None. FINDINGS: Normal visualized lung bases. There is an unremarkable bowel gas pattern. There is a 1.2 cm x 0.5 cm calculus in the lower pole calyx of the left kidney. There are calcified phleboliths in the pelvis. Normal visualized osseous structures. RAD/Abdomen Single View IMPRESSION: 1.2 cm x 0.5 cm calculus in the lower pole calyx of the left kidney. Electronically Signed: Issac Fu MD at 11:08 EDT , Service support ,
--- NOTE | 2021-03-01 07:43 | PCM.CONS.B ---
Consult Date of Consult: 03/01/21 Follow up to consult, 51 yo male presented with 5mm stone in distal right ureter, has not been able to pass stone KUB today can see stones in left kidney but not clear where stone is in right ureter. plan for intervention tomorrow is can't pass stone, added on to schedule for right ureteroscopy laser and stent. npo at pr
[2021-03-01 08:55] VITALS: BP 108/61; PULSE 80; RESP 16; TEMP 36.6; O2SAT 95
[2021-03-01] MEDS: oxyCODONE CR 15 MG Tablet PO ×2 (10:24→22:39)
[2021-03-01] MEDS: Tamsulosin HCl 0.4 MG Capsule PO ×2 (10:25→22:40)
--- NOTE | 2021-03-01 11:11 | PCM.PN.HOSP ---
Subjective Subjective Pain is controlled, still has not passed a stone. Plan for intervention in the morning. Objective Data Objective Data Vital Signs: Vital Signs Temp Pulse Resp BP Pulse Ox 97.8 F 80 16 108/61 95 03/01/21 08:55 03/01/21 08:55 03/01/21 08:55 03/01/21 08:55 03/01/21 08:55 Oxygen Delivery Method Room Air Weight: 232 lb 9 oz Body Mass Index (BMI) 35.3 Intake & Output: Intake and Output for Last 24 Hours 02/28/21 03/01/21 03/02/21 03:59 03:59 03:59 Intake Total 1000 / 1000 2833.34 / 2833.34 1066.66 / 1066.66 Output Total 750 / 750 3900 / 3900 700 / 700 Balance 250 / 250 -1066.66 / -1066.66 366.66 / 366.66 Lab / Micro Data Result Diagrams: 02/28/21 05:52 02/28/21 05:52 Radiography Diagnostic Testing: Radiology Impression KUB X-Ray 03/01/21 06:00 IMPRESSION: 1.2 cm x 0.5 cm calculus in the lower pole calyx of the left kidney. Electronically Signed: Issac Fu MD at 11:08 EDT , Service support , Physical Exam Const alert, oriented x3 and no apparent distress General Appearance: cooperative HEENT normocephalic and moist oral mucous membranes Eyes PERRL, EOMs intact bilaterally and conjunctivae normal Neck supple and no JVD Resp normal respiratory effort, no retractions, no use of accessory muscles and clear to auscultation bilaterally Auscultation: Negative for crackles, rales, rhonchi or wheezes Cardio regular rate, regular rhythm, S1 normal heart sound, S2 normal heart sound and no murmurs GI soft to palpation, non-tender and non-distended; Negative for hepatosplenomegaly Bladder / Kidney Exam: CVA tenderness right Extremity no clubbing, cyanosis or edema Skin no rashes or lesions noted Neuro no focal motor deficits and no sensory deficits noted Psych affect normal Appearance: appropriate Assessment & Plan Assessment/Plan (1) Urolithiasis: PLAN: 1. 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
[2021-03-01 18:24] VITALS: BP 137/80; PULSE 85; RESP 18; TEMP 36.5; O2SAT 94
[2021-03-01 22:35] VITALS: BP 123/82; PULSE 77; RESP 18; TEMP 36.8; O2SAT 95
[2021-03-01] MEDS: Nortriptyline 10 MG Capsule PO (22:40)
[2021-03-02] VITALS (10 sets, daily range): BP systolic 114–138; BP diastolic 71–93; PULSE 60–91; RESP 12–18; TEMP 36.2–36.6; O2SAT 92–100; BMI 35.3
[2021-03-02] MEDS: 0.9% Normal Saline 1,000 ML 125 ML IV ×3 (04:15→21:40)
[2021-03-02] MEDS: Gabapentin 300 MG Capsule 900 MG PO ×2 (06:39→21:38)
[2021-03-02] MEDS: Ketorolac 30 MG/ML Syringe IV ×3 (06:39→21:38)
[2021-03-02] MEDS: 0.9% Saline Lock 10 ML Syringe IV ×2 (06:40→13:40)
[2021-03-02 06:50] LABS: Absolute Lymphocyte Count 1.86 X10^3/uL (0.83-4.51); Absolute Neutrophil Count 2.1 X10^3/uL (2.0-7.7); Basophil# 0.03 X10^3/uL; Basophil% 0.5 % (0-1); Eosinophil# 0.84 X10^3/uL; Eosinophils% 15.4 % (0-5); Hematocrit 36.7 % (40-54); Hemoglobin 12.1 g/dL (13.0-16.5); Lymphocyte # 1.86 X10^3/ul (0.83-4.51); Mean Corpuscular Hgb 31.1 pg (27.0-32.0); Mean Corpuscular Volume 94.3 fL (80-94); Mean Platelet Vol. 8.9 fl (6.2-12.0); Monocyte# 0.61 X10^3/uL; Monocyte% 11.2 % (0-10); NRBC Flagged by Analyzer 0 % (0-5); Neutrophil # 2.12 X10^3/uL (2.7-7.7); Neutrophil % 38.7 % (47-70); Platelet Count 247 K/mm3 (150-450); RBC Distribution Width CV 11.8 % (11.6-14.6); RBC Distribution Width SD 41.1 fl (35.1-43.9); Red Blood Count 3.89 M/mm3 (4.6-6.2); White Blood Count 5.5 K/mm3 (4.4-11.0)
[2021-03-02 07:31] LABS: Anion Gap 6 (5-15); BUN 11 mg/dL (7-18); BUN/Creat Ratio 13.1 RATIO (10-20); Calcium,Total 8.3 mg/dL (8.5-10.1); Chloride 108 mmol/L (98-107); Creatinine, Serum 0.84 mg/dL (0.70-1.30); EST Glomerular Filtration Rate 102 mL/min (>60); Est Glom Filt Rate - Afr Amer 124 mL/min (>60); Estimated Creatinine Clearance 99.52 ml/min; Glucose 98 mg/dL (74-106); Potassium 4.3 mmol/L (3.5-5.1); Sodium Level 138 mmol/L (136-145)
--- NOTE | 2021-03-02 09:15 | PCS.PANDOC ---
PANDEMIC DOCUMENTATION INITIATED: Date: 12/20/2020 Time: 190
--- NOTE | 2021-03-02 10:17 | PN.HOSP_ITS ---
Subjective Subjective Doing well plan for OR today. Objective Data Objective Data Vital Signs: Vital Signs Temp Pulse Resp BP Pulse Ox 97.9 F 68 18 126/85 H 100 03/02/21 10:09 03/02/21 10:09 03/02/21 10:09 03/02/21 10:09 03/02/21 10:09 Oxygen Delivery Method Room Air Weight: 232 lb 9 oz Body Mass Index (BMI) 35.3 Intake & Output: Intake and Output for Last 24 Hours 03/01/21 03/02/21 03/03/21 03:59 03:59 03:59 Intake Total 2833.34 / 2833.34 3735.41 / 3735.41 983.33 / 983.33 Output Total 3900 / 3900 3800 / 3800 400 / 400 Balance -1066.66 / -1066.66 -64.59 / -64.59 583.33 / 583.33 Lab / Micro Data Result Diagrams: 03/02/21 06:24 03/02/21 06:24 Labs: Laboratory Results - last 24 hr 03/02/21 06:24: WBC 5.5, RBC 3.89 L, Hgb 12.1 L, Hct 36.7 L, MCV 94.3 H D, MCH 31.1, MCHC 33.0 D, RDW Std Deviation 41.1, RDW Coeff of Luli 11.8, Plt Count 247, MPV 8.9, Immature Gran % (Auto) 0.200, Neut % (Auto) 38.7 L, Lymph % (Auto) 34.0, [place] % (Auto) 11.2 H, Eos % (Auto) 15.4 H, Baso % (Auto) 0.5, Absolute Neuts (auto) 2.1, Absolute Lymphs (auto) 1.86, Nucleated RBC % 0 03/02/21 06:24: Sodium 138, Potassium 4.3, Chloride 108 H, Carbon Dioxide 24.0, Anion Gap 6, BUN 11, Creatinine 0.84, Estim Creat Clear Calc 99.52, Est GFR (MDRD) Af Amer 124, Est GFR (MDRD) Non-Af 102, BUN/Creatinine Ratio 13.1, Glucose 98, Calcium 8.3 L Micro: Microbiology 03/02/21 07:10 Nasal Secretion SARS-CoV-2 Antigen (Rapid) - Final Radiography Diagnostic Testing: Radiology Impression KUB X-Ray 03/01/21 06:00 IMPRESSION: 1.2 cm x 0.5 cm calculus in the lower pole calyx of the left kidney. Electronically Signed: Issac Fu MD at 11:08 EDT , Service support , Physical Exam Const alert, oriented x3 and no apparent distress General Appearance: cooperative HEENT normocephalic and moist oral mucous membranes Eyes PERRL, EOMs intact bilaterally and conjunctivae normal Neck supple and no JVD Resp normal respiratory effort, no retractions, no use of accessory muscles and clear to auscultation bilaterally Auscultation: Negative for crackles, rales, rhonchi or wheezes Cardio regular rate, regular rhythm, S1 normal heart sound, S2 normal heart sound and no murmurs GI soft to palpation, non-tender and non-distended; Negative for hepatosplenomegaly Bladder / Kidney Exam: CVA tenderness right Extremity no clubbing, cyanosis or edema Skin no rashes or lesions noted Neuro no focal motor deficits and no sensory deficits noted Psych affect normal Appearance: appropriate Assessment & Plan Assessment/Plan (1) Urolithiasis: PLAN: 1. 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
--- NOTE | 2021-03-02 15:24 | PCM.DC ---
Discharge Instructions Diet Discharge Diet: No restrictions Activity Discharge Activity: Return to Normal Activity and May Not Drive (while taking narcotic pain medications.) Dressing / Incision Call your doctor if you observe: Fever of 101 or Higher Follow Up Care Please Follow Up With: Moises Tabor MD When: Call [phone] for an appointment Test Results: Test results from this visit will be discussed in further detail at your follow-up appointment, if applicable. Discharge Plan Admission Admit Date/Time: 02/27/21 14:41 Primary Reason for Your Visit: laser stone and stent Attending Provider: Joe Leal Primary Care Provider: Bijal Kendall Consulting Providers: Moises Tabor Discharge Orders/Prescriptions Prescriptions: New ciprofloxacin HCl [Cipro] 500 mg tablet 500 mg PO BID Qty: 6 RF: 0 oxycodone-acetaminophen 5-325 mg tablet 1 tab PO Q6H PRN (Reason: pain) 7 Days Qty: 10 RF: 0 Continued gabapentin 600 mg tablet 900 mg PO TID RF: 0 nortriptyline 10 mg capsule 10 mg PO QHS RF: 0 Xtampza ER 13.5 mg cap,sprinkl,ER12hr(DONT CRUSH) 13.5 mg PO BID RF: 0 Referrals / Follow Up: Moises Tabor MD [STAFF PHYSICIAN] - Bijal Kendall MD [Primary Care Provider] -
[2021-03-02] MEDS: Cefazolin 2 GM in 0.9% Normal Saline 100 ML IV (15:25)
--- NOTE | 2021-03-02 16:02 | OP.PCM_ITS ---
Report of Operation Date of Procedure: 03/02/21 Pre-Operative Diagnosis: Right distal ureteral calculi Post-Operative Diagnosis: Same Surgery/Procedure Performed:: Cystoscopy, right ureteroscopy balloon dilation, balloon dilation of the ureter, right ureteroscopy laser lithotripsy of stone and stent placement Description of Surgical Findings:: This is a patient who presents to the hospital for treatment for an obstructing distal ureter calculi. I discussed with the patient how the surgery would be performed and we reviewed the risks and benefits of the surgery. The risk and benefits include the risk of failure to remove the stone completely and that the patient may need multiple procedures. We discussed the risk of an infection, the risk of bleeding. We discussed the very rare risk of serious complicated injury to the ureter. The patient understands that if the stone is not able to be removed safely that we may abort the procedure and place a stent. After full discussion and all questions address with the patient the consent form was signed the side was marked appropriately and the patient was taken back to the operating room for the procedure. The patient was taken back to the operating room. After induction of anesthesia by the anesthesiology team the patient was placed in dorsolithotomy position. The genitals were prepped and draped in usual sterile fashion. I went into the bladder with a 21 Macedonian rigid cystourethroscope through the urethra. Upon entering the bladder I inspected the trigone the left and right ureteral orifice and the bladder itself. I then cannulated the right ureteral orifice and advanced a 0.038 Glidewire up into the kidney. Then over the Glidewire I advanced a 5 Fr Ureteral catheter and performed a retrograde pyelogram with about 10cc of contrast, to delineate the anatomy and identify the stone location. Then a ureteral balloon dilator was advanced over the wire and the distal ureter was balloon dilated with a 12 Fr x 5cm balloon dilator. After 3 minutes of dilating the ureter the balloon was backloaded off the 0.038 glidewire then the safety wire was left in place. I then placed a second 0.038 Guidewire as a working wire and over the working 0.038 guidewire I went in with a Flexible 7.9fr ureteroscope. I was able to go inside with the 7.9Fr flexible utereroscope and I pulled out the working guidewire and then through the 7.9 fr flexible ureteroscope I ascended up the ureter with direct visualization until the stone was located, then I engaged the stone with laser lithotripsy using a 270miron laser fiber with energy setting of 6 Hertz and 0.6 J until the stone was lasered into tiny little pieces that should pass on their own. After successful laser lithotripsy of the stone and stone fragements, a retrograde pyelogram was performed with 10cc of contrast and no extravasation of contrast or perforation was identified in the ureter. I then backed out of the ureter left the wire in place and then over the 0.038 guidewire I placed a double coile d pigtail ureteral stent. The ureteral stent was advanced over the 0.038 guidewire under direct fluoroscopic guidance and direct cystoscopic visual guidance, once the stent was in good position I pulled the wire and the stent coiled in the kidney and bladder in good position. I then drained the patient's bladder and the cystoscope was removed and the patient was taken back to the recovery room in good position. The patient was given discharge instructions to call the office for instructions on when to come to the office to have the stent removed. Surgeon: heidi Type of Anesthesia: General Drains: stent right Admit VTE Documentation VTE Present on Admission: No VTE Mechan Device Prophylaxis: SCD's
[2021-03-02] MEDS: Nortriptyline 10 MG Capsule PO (21:39)
[2021-03-02] MEDS: Tamsulosin HCl 0.4 MG Capsule PO (21:39)
[2021-03-02] MEDS: oxyCODONE CR 15 MG Tablet PO (21:39)
[2021-03-03 02:59] VITALS: BP 126/71; PULSE 80; RESP 16; TEMP 36.7; O2SAT 94
[2021-03-03] MEDS: Gabapentin 300 MG Capsule 900 MG PO (05:15)
[2021-03-03] MEDS: 0.9% Normal Saline 1,000 ML 125 ML IV (05:17)
[2021-03-03 06:46] LABS: Absolute Lymphocyte Count 1.69 X10^3/uL (0.83-4.51); Absolute Neutrophil Count 2.4 X10^3/uL (2.0-7.7); Basophil# 0.03 X10^3/uL; Basophil% 0.6 % (0-1); Eosinophil# 0.53 X10^3/uL; Eosinophils% 10.1 % (0-5); Hematocrit 38.9 % (40-54); Lymphocyte # 1.69 X10^3/ul (0.83-4.51); Lymphocyte % 32.2 % (19-41); Mean Corp Hgb Conc 33.4 g/dL (32-36); Mean Corpuscular Hgb 31.3 pg (27.0-32.0); Mean Corpuscular Volume 93.5 fL (80-94); Mean Platelet Vol. 9.3 fl (6.2-12.0); Monocyte% 11.4 % (0-10); NRBC Flagged by Analyzer 0 % (0-5); Neutrophil # 2.38 X10^3/uL (2.7-7.7); Neutrophil % 45.3 % (47-70); Platelet Count 256 K/mm3 (150-450); RBC Distribution Width CV 11.9 % (11.6-14.6); RBC Distribution Width SD 41.1 fl (35.1-43.9); Red Blood Count 4.16 M/mm3 (4.6-6.2); White Blood Count 5.3 K/mm3 (4.4-11.0)
[2021-03-03 07:11] LABS: Anion Gap 4 (5-15); BUN 13 mg/dL (7-18); BUN/Creat Ratio 13.9 RATIO (10-20); Calcium,Total 8.4 mg/dL (8.5-10.1); Chloride 107 mmol/L (98-107); Creatinine, Serum 0.94 mg/dL (0.70-1.30); EST Glomerular Filtration Rate 90 mL/min (>60); Est Glom Filt Rate - Afr Amer 109 mL/min (>60); Estimated Creatinine Clearance 88.94 ml/min; Glucose 87 mg/dL (74-106); Potassium 3.8 mmol/L (3.5-5.1); Sodium Level 139 mmol/L (136-145)
[2021-03-03] MEDS: oxyCODONE CR 15 MG Tablet PO (10:09)
[2021-03-03] MEDS: Tamsulosin HCl 0.4 MG Capsule PO (10:10)
--- NOTE | 2021-03-03 10:23 | PCM.DC ---
Discharge Instructions Diet Discharge Diet: No restrictions Dressing / Incision Call your doctor if you observe: Fever of 101 or Higher, Shortness of breath, Dizziness, Fainting spells, Swelling in the ankles, Chest pain and Increased palpitations (irregular heartbeat) Follow Up Care Please Follow Up With: Moises Tabor MD Test Results: Test results from this visit will be discussed in further detail at your follow-up appointment, if applicable. Discharge Plan Admission Admit Date/Time: 02/27/21 14:41 Primary Reason for Your Visit: laser stone and stent Attending Provider: Joe Leal Primary Care Provider: Bijal Kendall Consulting Providers: Moises Tabor Discharge Orders/Prescriptions Prescriptions: New ciprofloxacin HCl [Cipro] 500 mg tablet 500 mg PO BID Qty: 6 RF: 0 oxycodone-acetaminophen 5-325 mg tablet 1 tab PO Q6H PRN (Reason: pain) 7 Days Qty: 10 RF: 0 tamsulosin 0.4 mg Capsule 0.4 mg PO DAILY Qty: 20 RF: 0 Continued gabapentin 600 mg tablet 900 mg PO TID RF: 0 nortriptyline 10 mg capsule 10 mg PO QHS RF: 0 Xtampza ER 13.5 mg cap,sprinkl,ER12hr(DONT CRUSH) 13.5 mg PO BID RF: 0 Referrals / Follow Up: Moises Tabor MD [STAFF PHYSICIAN] - Bijal Kendall MD [Primary Care Provider] - Within 1 Week Disposition Disposition (needs filled in before D/C Order can be placed): Home, Self Care
--- NOTE | 2021-03-03 10:25 | PCM.DC.SUM ---
Providers Date of Admission: 02/27/21 Primary Care Physician: Dr. Bijal Kendall MD Consultations 02/27/21 15:33 Consult: Urology Routine Consulting Provider: Moises Tabor Reason for Consult: Kidney stone EMERGENT Consult: Yes MD Notified: Yes Date Notified: 02/28/21 Time Notified: 07:48 Method of Notification: Verbal Reason For Visit: KIDNEY STONE Diagnosis Discharge Diagnosis (1) Urolithiasis: Status: Acute Code(s): N20.9 - Urinary calculus, unspecified Medications at Discharge Home Medications Xtampza ER 13.5 mg PO BID 02/27/21 gabapentin 900 mg PO TID 02/27/21 nortriptyline 10 mg PO QHS 02/27/21 ciprofloxacin HCl [Cipro] 500 mg PO BID #6 tab 03/02/21 oxycodone-acetaminophen 1 tab PO Q6H PRN 7 Days #10 tab 03/02/21 tamsulosin 0.4 mg PO DAILY #20 cap 03/03/21 Hospital Course Operations - (Cystoscopy with lithotripsy and stent on the right) Procedures None Summary of Care Provided Minutes Spent on Discharge: 42 Hospital Course: Per HPI: ANANTH THOMAS, is a 51 M who presents to the hospital with intermittent abdominal pain for the last week. He came in this morning because the pain recurred severely. In the ER he was found to have normal vital signs as well as normal labs however CT scan of his abdomen demonstrated a right distal ureteral stone as well as a possible early staghorn stone in the left kidney.Denies any fevers or chills but states that he did have some nausea and vomiting due to the pain. Hospital Course: 1. 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 He has been given antibiotic prescription as well as a narcotic prescription by urology. I will provide him with a Flomax prescription for 20 days. He will need to follow-up as an outpatient with urology as previously scheduled, as well as PCP in 3 to 5 days. Physical Exam Const alert, oriented x3 and no apparent distress General Appearance: cooperative HEENT normocephalic and moist oral mucous membranes Eyes PERRL, EOMs intact bilaterally and conjunctivae normal Neck supple and no JVD Resp normal respiratory effort, no retractions, no use of accessory muscles and clear to auscultation bilaterally Auscultation: Negative for crackles, rales, rhonchi or wheezes Cardio regular rate, regular rhythm, S1 normal heart sound, S2 normal heart sound and no murmurs GI soft to palpation, non-tender and non-distended; Negative for hepatosplenomegaly Bladder / Kidney Exam: CVA tenderness right Extremity no clubbing, cyanosis or edema Skin no rashes or lesions noted Neuro no focal motor deficits and no sensory deficits noted Psych affect normal Appearance: appropriate Weight / BMI Weight Weight: 232 lb 9 oz Body Mass Index (BMI) 35.3 ABG / Lab / Microbiology Data Result Diagrams: 03/03/21 05:48 03/03/21 05:48 Laboratory: Laboratory Results - last 24 hr 03/03/21 05:48: WBC 5.3, RBC 4.16 L, Hgb 13.0, Hct 38.9 L, MCV 93.5, MCH 31.3, MCHC 33.4, RDW Std Deviation 41.1, RDW Coeff of Luli 11.9, Plt Count 256, MPV 9.3, Immature Gran % (Auto) 0.400, Neut % (Auto) 45.3 L, Lymph % (Auto) 32.2, [place] % (Auto) 11.4 H, Eos % (Auto) 10.1 H, Baso % (Auto) 0.6, Absolute Neuts (auto) 2.4, Absolute Lymphs (auto) 1.69, Nucleated RBC % 0 03/03/21 05:48: Sodium 139, Potassium 3.8, Chloride 107, Carbon Dioxide 28.0, Anion Gap 4 L, BUN 13, Creatinine 0.94, Estim Creat Clear Calc 88.94, Est GFR (MDRD) Af Amer 109, Est GFR (MDRD) Non-Af 90, BUN/Creatinine Ratio 13.9, Glucose 87, Calcium 8.4 L Microbiology: Microbiology 03/02/21 07:10 Nasal Secretion SARS-CoV-2 Antigen (Rapid) - Final D/C Instructions Discharge Diet: No restrictions Call your doctor if you observe: Fever of 101 or Higher, Shortness of breath, Dizziness, Fainting spells, Swelling in the ankles, Chest pain and Increased palpitations (irregular heartbeat) Please Follow Up With: Moises Tabor MD When: Call [phone] for an appointment Meaningful Use Info Meaningful Use Diagnoses (Choose all that apply): None applicable Discharge Plan Admission Admit Date/Time: 02/27/21 14:41 Primary Reason for Your Visit: laser stone and stent Attending Provider: Joe Leal Primary Care Provider: Bijal Kendall Consulting Providers: Moises Tabor Discharge Orders/Prescriptions Prescriptions: New ciprofloxacin HCl [Cipro] 500 mg tablet 500 mg PO BID Qty: 6 RF: 0 oxycodone-acetaminophen 5-325 mg tablet 1 tab PO Q6H PRN (Reason: pain) 7 Days Qty: 10 RF: 0 tamsulosin 0.4 mg Capsule 0.4 mg PO DAILY Qty: 20 RF: 0 Continued gabapentin 600 mg tablet 900 mg PO TID RF: 0 nortriptyline 10 mg capsule 10 mg PO QHS RF: 0 Xtampza ER 13.5 mg cap,sprinkl,ER12hr(DONT CRUSH) 13.5 mg PO BID RF: 0 Referrals / Follow Up: Moises Tabor MD [STAFF PHYSICIAN] - Bijal Kendall MD [Primary Care Provider] - Within 1 Week Disposition Disposition (needs filled in before D/C Order can be placed): Home, Self Care Charges/Coding Visit Charges Inpatient E&M: 56722 Disch Hosp
[2021-03-03 10:55] VITALS: BP 130/70; PULSE 91; RESP 18; TEMP 36.6; O2SAT 97
== END 2021-03-03 12:30 | disposition home or self-care (01) | DRG 661 ==
LOC: ED 14:37 → MS2 02-28 10:38
PROVIDERS: Urology; Admitting Provider Family Medicine; Emergency Provider Emergency Medicine; PCP Family Medicine; Visit Provider Family Medicine
PROC: 0TJ98ZZ Inspection of Ureter, Via Natural or Artificial Opening Endoscopic (ICD-10-PCS; CPT 52352; principal; 2021-03-02 14:45)
DX: N13.2 Hydronephrosis with renal and ureteral calculous obstruction (principal); M81.0 Age-related osteoporosis without current pathological fracture; G43.909 Migraine, unspecified, not intractable, without status migrainosus; G47.30 Sleep apnea, unspecified; G62.9 Polyneuropathy, unspecified; G89.29 Other chronic pain; H91.91 Unspecified hearing loss, right ear; J45.909 Unspecified asthma, uncomplicated; Z79.891 Long term (current) use of opiate analgesic
CPT/HCPCS: 36415; 74018; 74176; 80048; 80053; 81001; 83605; 83690; 85025; 87426; 99285; J7030; A4216; C1769; C2617; J2405

== ENCOUNTER → 2021-04-18 15:17 | Outpatient (CLI) | payer OTHER, SELFPAY ==
--- NOTE | 2021-04-18 15:42 | EKG12_ITS ---
Test Reason : PREOP Blood Pressure : / mmHG Vent. Rate : 094 BPM Atrial Rate : 094 BPM P-R Int : 162 ms QRS Dur : 078 ms QT Int : 342 ms P-R-T Axes : 013 009 031 degrees QTc Int : 427 ms Normal sinus rhythm Normal ECG Confirmed by MANI OTT, SUZY ([id number]), newspaper or periodical editor JUWAN NARVAEZ ([id number]) on 04/20/2021 12:10:48 PM Referred By: TORSTEN Confirmed By:SUZY SINGLETON MD
[2021-04-18 16:16] LABS: Hematocrit 45.6 % (40-54); Hemoglobin 15.4 g/dL (13.0-16.5); Mean Corp Hgb Conc 33.8 g/dL (32-36); Mean Corpuscular Hgb 31.2 pg (27.0-32.0); Mean Corpuscular Volume 92.3 fL (80-94); Mean Platelet Vol. 8.9 fl (6.2-12.0); Platelet Count 341 K/mm3 (150-450); RBC Distribution Width CV 11.9 % (11.6-14.6); RBC Distribution Width SD 40.6 fl (35.1-43.9); Red Blood Count 4.94 M/mm3 (4.6-6.2); White Blood Count 5.2 K/mm3 (4.4-11.0)
[2021-04-18 16:22] LABS: Anion Gap 7 (5-15); BUN 12 mg/dL (7-18); BUN/Creat Ratio 11.1 RATIO (10-20); Calcium,Total 9.5 mg/dL (8.5-10.1); Chloride 105 mmol/L (98-107); Creatinine, Serum 1.08 mg/dL (0.70-1.30); EST Glomerular Filtration Rate 76 mL/min (>60); Est Glom Filt Rate - Afr Amer 92 mL/min (>60); Glucose 114 mg/dL (74-106); Sodium Level 139 mmol/L (136-145)
== END ==
PROVIDERS: PCP Family Medicine; Visit Provider Urology
DX: Z01.810 Encounter for preprocedural cardiovascular examination (principal); Z01.812 Encounter for preprocedural laboratory examination; Z03.818 Encounter for observation for suspected exposure to other biological agents ruled out
CPT/HCPCS: 36415; 80048; 85027; 87426; 93005; C9803

== ENCOUNTER → 2021-04-27 16:18 | Outpatient (CLI) | payer OTHER, SELFPAY ==
[2021-04-27 17:03] LABS: Amphetamine Urine VISTA NEGATIVE (<1000 ng/mL); Barbiturate Urine VISTA NEGATIVE (< 200 ng/mL); Benzodiazepine Urine VISTA NEGATIVE (< 200 ng/mL); Cocaine Urine VISTA NEGATIVE (< 300 ng/mL); Ecstacy Urine VISTA NEGATIVE (< 500 ng/mL); Methadone Urine VISTA NEGATIVE (< 300 ng/mL); PCP Urine VISTA NEGATIVE (< 25 ng/mL); THC Urine VISTA NEGATIVE (< 50 ng/mL); Vista UDS pH Range 5
== END ==
PROVIDERS: PCP Family Medicine; Referring Provider Anesthesiology Pain Medicine; Visit Provider Anesthesiology Pain Medicine
DX: F11.20 Opioid dependence, uncomplicated (principal)
CPT/HCPCS: 80307

== ENCOUNTER → 2021-11-14 | Outpatient (CLI) | payer OTHER, SELFPAY ==
[2021-11-14 16:18] LABS: Amphetamine Urine VISTA NEGATIVE (<1000 ng/mL); Barbiturate Urine VISTA NEGATIVE (< 200 ng/mL); Benzodiazepine Urine VISTA NEGATIVE (< 200 ng/mL); Cocaine Urine VISTA NEGATIVE (< 300 ng/mL); Ecstacy Urine VISTA NEGATIVE (< 500 ng/mL); Methadone Urine VISTA NEGATIVE (< 300 ng/mL); PCP Urine VISTA NEGATIVE (< 25 ng/mL); THC Urine VISTA NEGATIVE (< 50 ng/mL); Vista UDS pH Range 4
== END | disposition home or self-care (01) ==
LOC: LAB 15:08
PROVIDERS: PCP Family Medicine; Visit Provider Anesthesiology Pain Medicine
DX: F11.20 Opioid dependence, uncomplicated (principal)
CPT/HCPCS: 80307

== ENCOUNTER → 2023-01-18 | Outpatient (CLI) | payer OTHER, SELFPAY ==
[2023-01-18 12:26] LABS: Allen Test Positive; Base Excess 1 mmol/L (-2 to +2); Bicarbonate 26.5 mmol/L (22-26); Blood Gas Specimen Type ART; Mode Not entered; O2 Delivery Device Room Air; PO2 71 mmHG (75-100); SITE L Radial; SO2 94 % (95-99); Total Carbon Dioxide 28 mmol/L; pCO2 44.6 mmHg (35-45); pH 7.38 (7.35-7.45)
== END | disposition home or self-care (01) ==
PROVIDERS: PCP Family Medicine; Referring Provider Internal Medicine Pulmonary Disease; Visit Provider Internal Medicine Pulmonary Disease
DX: G47.33 Obstructive sleep apnea (adult) (pediatric) (principal)
CPT/HCPCS: 36600; 82803

== ENCOUNTER → 2023-07-25 | Outpatient (CLI) | payer OTHER, SELFPAY ==
[2023-07-25 16:32] LABS: Amphetamine Urine VISTA POSITIVE (<1000 ng/mL); Barbiturate Urine VISTA NEGATIVE (< 200 ng/mL); Benzodiazepine Urine VISTA NEGATIVE (< 200 ng/mL); Cocaine Urine VISTA NEGATIVE (< 300 ng/mL); Ecstacy Urine VISTA POSITIVE (< 500 ng/mL); Methadone Urine VISTA NEGATIVE (< 300 ng/mL); PCP Urine VISTA NEGATIVE (< 25 ng/mL); THC Urine VISTA NEGATIVE (< 50 ng/mL); Vista UDS pH Range 5
== END | disposition home or self-care (01) ==
PROVIDERS: PCP Family Medicine; Referring Provider Anesthesiology Pain Medicine; Visit Provider Anesthesiology Pain Medicine
DX: F11.20 Opioid dependence, uncomplicated (principal)
CPT/HCPCS: 80307

== ENCOUNTER → 2024-08-13 | Outpatient (CLI) | payer OTHER, SELFPAY ==
[2024-08-13 20:23] LABS: Amphetamine Urine NEGATIVE (<1000 ng/mL); Barbiturate Urine NEGATIVE (< 200 ng/mL); Benzodiazepine Urine NEGATIVE (< 200 ng/mL); Buprenorphine Urine NEGATIVE (< 200 ng/mL); Cocaine Urine NEGATIVE (< 300 ng/mL); Fentanyl, Urine NEGATIVE; Methadone Urine NEGATIVE (< 300 ng/mL); Opiates Urine NEGATIVE (< 300 ng/mL); Oxycodone, Urine PRESUMPTIVE POSITIVE (< 100 ng/mL); PCP Urine NEGATIVE (< 25 ng/mL); THC Urine NEGATIVE (< 50 ng/mL)
== END | disposition home or self-care (01) ==
LOC: LAB 15:50
PROVIDERS: PCP Family Medicine; Referring Provider Anesthesiology Pain Medicine; Visit Provider Anesthesiology Pain Medicine
DX: F11.20 Opioid dependence, uncomplicated (principal)
CPT/HCPCS: 80307